=== PATIENT | male | born 1990 | race Caucasian/White ===

== ENCOUNTER 2018-12-21 09:29 | Emergency (ER) | payer SELFPAY ==
[~2018-12-21] VITALS: Ht 182.9 cm; Wt 81.8 kg
[~2018-12-21 09:29] MED LIST: NOCURR
[2018-12-21] MEDS ORDERED: PENICILLIN G BENZATHINE LA 1,200,000 UNITS/2 ML SYRINGE IM ONE (11:30)
[2018-12-21] MEDS ORDERED: DEXAMETHASONE 4 MG TABLET PO ONE (11:30)
[2018-12-21 12:00] VITALS: BP 125/67
== END 2018-12-21 12:30 | disposition home or self-care (01) ==
LOC: EDUNIT# 09:29 → EMS 09:30
DX: J02.9 Acute pharyngitis, unspecified (principal); F17.210 Nicotine dependence, cigarettes, uncomplicated; F14.90 Cocaine use, unspecified, uncomplicated
CPT/HCPCS: 96372; 99283; J0561; J8540